=== PATIENT | male | born 1940 | race Caucasian/White ===

== ENCOUNTER 2016-11-29 09:55 | Day surgery (SDC) | payer MEDICARE, BC ==
[~2016-11-29 09:55] MED LIST: LIDOCAINE HCL 1% MPF SOL ONE; PROPOFOL 500 MG/50 ML EMU IV ONE
[2016-11-29 11:22] VITALS: O2SAT 96
[2016-11-29 11:41] VITALS: BP 136/81; PULSE 67; RESP 20; TEMP 97.8
== END 2016-11-29 11:55 | disposition home or self-care (01) | DRG 951 ==
LOC: SURG 09:55
PROVIDERS: ATTEND Surgery
DX: Z12.11 Encounter for screening for malignant neoplasm of colon (principal); K57.30 Diverticulosis of large intestine without perforation or abscess without bleeding; Z86.010 Personal history of colon polyps; K63.5 Polyp of colon
CPT/HCPCS: J2001; J2704